=== PATIENT | female | born 1935 | race African-American/Black ===

== ENCOUNTER 2017-05-16 09:34 | Observation (INO) | payer OTHER ==
[~2017-05-16] VITALS: Ht 162.6 cm; Wt 72.4 kg
--- NOTE | 2017-05-16 09:44 | NUR ---
EKG IN PROGRESS BY EMT NAGA IN TRIAGE
--- NOTE | 2017-05-16 09:49 | NUR ---
[facility] ALERT AND ORIENTED SPEAKING IN CLEAR COMPLETE SENTENCES. EKG DONE IN TRIAGE SHOWN TO DR. CRUZ IN NO DISTRESS AT THIS TIME.
--- NOTE | 2017-05-16 11:05 | NUR ---
MEDICATED ORDERED. PLEASE SEE EMR.
--- NOTE | 2017-05-16 11:18 | NUR ---
BEDSIDE ULTRASOUND BEGUN.
[2017-05-16 11:35] LABS: BASOPHIL % 0.5 % (0-2); PLATELET COUNT 358 x10^3mcL (130-400); RED CELL DISTRIBUTION WIDTH 13.8 % (11.5-14.5)
[2017-05-16 11:50] LABS: CARBON DIOXIDE 32.1 mmol/L (21-32); CHLORIDE SERUM 101 mmol/L (98-107); GLUCOSE SERUM 98 mg/dL (74-106); POTASSIUM SERUM 3.7 mmol/L (3.5-5.1); SODIUM SERUM 143 mmol/L (136-145)
[2017-05-16 11:55] LABS: ALBUMIN 3.4 g/dL (3.4-5.0); ALKALINE PHOSPHATASE 75 U/L (46-116); ALT/SGPT 20 U/L (14-59); AST/SGOT 17 U/L (15-37); BILIRUBIN TOTAL 0.3 mg/dL (0.20-1.00); LIPASE 99 IU/L (73-393); TOTAL PROTEIN, SERUM 7.4 g/dL (6.4-8.2)
--- NOTE | 2017-05-16 12:22 | NUR ---
IV SITE PATENT. NO S/S OF INFILTRATION NOTED. PT DENIES PAIN OR DISCOMFORT TO SITE. CALL LIGHT W/IN REACH. WILL CONTINUE TO MONITOR.
--- NOTE | 2017-05-16 13:02 | NUR ---
PT RESTING ON GURNEY IN POSITION OF COMFORT. RESPS E/U. NO S/S OF DISTRESS NOTED. CALL LIGHT W/IN REACH. WILL CONTINUE TO MONITOR.
[2017-05-16] MEDS ORDERED: LISINOPRIL1 PO1 (13:06)
[2017-05-16] MEDS ORDERED: GOOD SENSE OMEP20 MG (13:06)
--- NOTE | 2017-05-16 13:18 | NUR ---
PT REPORTS SHE DOES NOT WANT TO BE ADMITTED. STS SHE HAS A SICK AT HOME W/NO ONE TO BE ABLE TO CARE FOR HIM. DR. REYNOLDS MADE AWARE.
--- NOTE | 2017-05-16 13:19 | NUR ---
DR. REYNOLDS AT BEDSIDE DISCUSSING PLAN OF CARE.
--- NOTE | 2017-05-16 13:49 | NUR ---
REPORT GIVEN TO DANIELLE RANDHAWA FOR CONTINUATION OF CARE PRIMARY RN.
[2017-05-16 14:08] VITALS: BP 166/63
--- NOTE | 2017-05-16 14:10 | NUR ---
RECEIVED PT FROM ED VIA [facility], CAME IN DUE TO ABDOMINAL PAIN. AAOX4. NO SOB NOTED. DENIES CHEST PAIN/PRESSURE, NSR ON THE MONITOR. STATED THAT SHE HAS MILD ABDOMINAL PAIN. DENIES NAUSEA/VOMITING. SIDE RAILS UPX2. CALL LIGHT ON REACH. ENDORSED
[2017-05-16 14:23] VITALS: BP 166/63
[2017-05-16 14:25] VITALS: Ht 162.6 cm; Wt 72.4 kg
--- NOTE | 2017-05-16 14:54 | NUR ---
PRIMARY NURSE SYDNEE MADE AWARE THAT PT NEEDS AN ADMIT ORDER
--- NOTE | 2017-05-16 15:00 | NUR ---
ASSUMED PT. CARE AWAKE ,ALERT AND ORIENTED. DENIES ABD. PAIN AT THIS TIME NO N/V.CONT. IV FLUIDS ORDERED. NO ACUTE DISTRESS NOTED. ABLE TO AMBULATE IN THE BATHROOM AND VOIDING WELL.CALL LIGHT W/ IN REACH.
[2017-05-16 17:32] LABS: CHOLESTEROL/HDL RATIO 2.8; MAGNESIUM 1.9 mg/dL (1.8-2.4)
[2017-05-16 17:38] VITALS: BP 142/59
[2017-05-16 17:42] LABS: FREE T4 1.09 ng/dL (0.76-1.46); FREE THYROXINE INDEX 3.6 ug/dL (1.4-4.5); T4(THYROXINE) 10.7 ug/dL (4.7-13.3)
--- NOTE | 2017-05-16 18:00 | NUR ---
DR. COURTNEY HERE SEEN THE PT. W/ NEW ORDERS MADE PT. TO KEEP NPO NOW .PT. MADE AWARE. DENIES ANY PAIN AT THIS TIME.CALLLIGHT W/ IN REACH.
[2017-05-16] MEDS ORDERED: TRAZODONE100 MG PO (18:25)
--- NOTE | 2017-05-16 19:57 | NUR ---
RECEIVED PT IN BED AAOX4 NO ACUTE DISTRESS NOTED, PT DENY ABD PAIN AT THE MOMENT BS ACTIVE X4 QUADRANT , ABD SOFT NON TENDER , LUNG SOUNDS CTA , ON TELE NUMBER 35 THAT SHOWS NSR HR 78. PIV TO RIGHT HAND INTACT INFUSING WELL . CALL LIGHT WITHIN PT'S REACH , WILL CON'T TO MONITOR AND ASSIST PT WITH CARE.
[2017-05-16 21:49] VITALS: BP 132/65
--- NOTE | 2017-05-16 22:35 | NUR ---
I HAVE REVIEWED THE DATA COLLECTION BY SERAFIN (NAME):BRAEDEN RUBI ENTERED ON (DATE/TIME):05/16/171956 I CONCUR WITH THE DATA AND ANY EXCEPTIONS OR COMMENTS ARE LISTED BELOW:
--- NOTE | 2017-05-16 23:11 | NUR ---
ASSUMED CARE . PT RESTING QUIETLY IN BED. DENIES PAIN OR ANY DISCOMFORT AT THIS TIME. SR ON THE MONITOR, DENIES CP. RESP. EVEN AND UNLABORED. ON ROOM AIR, NO DISTRESS NOTED. IVF, NS AT 100ML/HR, INTACT AND INFUSING VIA RT HAND, SITE CLEAR. ABLE TO TURN AND REPOSITION SELF IN BED. CALL LIGHT WITHIN REACH. WILL CONTINUE TO MONITOR.
[2017-05-16] MEDS ORDERED: ANASTROZOLE1 M1 PO (23:29)
--- NOTE | 2017-05-17 02:10 | NUR ---
ASLEEP AT THIS TIME, EASILY AROUSABLE.NO DISTRESS NOTED. WILL CONTINUE TO MONITOR.
[2017-05-17 06:03] VITALS: BP 118/49
--- NOTE | 2017-05-17 06:34 | NUR ---
SLEPT WELL. AFEBRILE AND VITAL SIGNS STABLE.RESP. EVEN AND UNLABORED. NO DISTRESS NOTED. DENIES ABD. PAIN, BUT HAD 2 LARGE LOOSE BMS. IVF INTACT AND INFUSING WELL, SITE CLEAR. KEPT COMFORTABLE. WILL ENDORSE TO INCOMING NURSE.
[2017-05-17 07:08] LABS: BASOPHIL % 1.3 % (0-2); PLATELET COUNT 327 x10^3mcL (130-400); RED CELL DISTRIBUTION WIDTH 13.8 % (11.5-14.5)
[2017-05-17 07:20] LABS: CALCIUM 8.6 mg/dL (8.5-10.1); CARBON DIOXIDE 30.4 mmol/L (21-32); CHLORIDE SERUM 106 mmol/L (98-107); CREATININE SERUM 1.2 mg/dL (0.6-1.0); GLUCOSE SERUM 84 mg/dL (74-106); POTASSIUM SERUM 3.6 mmol/L (3.5-5.1); SODIUM SERUM 144 mmol/L (136-145)
--- NOTE | 2017-05-17 07:50 | NUR ---
AWAKE,ALERT AND ORIENTED,DENIES ABD. PAIN AT THIS TIME. CONT.IV FLUIDS ORDERED. AMBULATED IN THE BATHROOM AND VOIDING WELL. DENIES N/V NO DIARRHEA NOTED THIS AM.ATE BREAKFAST FAIRLY.NOACUTE DISTRESS NOTED. WILL CONT. PLAN OF CARE.
--- NOTE | 2017-05-17 08:00 | NUR ---
DR. SANCHEZ WAS HERE W/ OTHER MEDICAL STAFF MADE ROUNDS AND UPDATED PT. PLAN OF CARE.
[2017-05-17 08:37] LABS: T3 TOTAL 1.4 ng/mL
[2017-05-17 09:58] LABS: UA SPECIFIC GRAVITY >=1.030 (1.005-1.035); microscopic required? YES
[2017-05-17 09:59] LABS: urine erythrocyte NEGATIVE (NEGATIVE)
[2017-05-17 10:00] VITALS: BP 136/65
[2017-05-17] MEDS ORDERED: GOOD SENSE OMEP20 MG PO (10:21)
--- NOTE | 2017-05-17 11:00 | NUR ---
DENIES ABD.PAIN NO ACUTE DISTRESS NOTED. AMBULATED IN THE BATHROOM AND VOIDING WELL.CALL LIGHT W/ IN REACH.
[2017-05-17 13:01] VITALS: BP 136/65
--- NOTE | 2017-05-17 14:13 | NUR ---
DISCHARGED INSTRUCTIONS GIVEN AND DISCUSSED TO PT. AND VERBALIZED UNDERSTANDING OF INSTRUCTIONS GIVEN ,PT. WENT HOME W/ STABLE CONDITION AMBULATORY ACCOMPANIED BY SUPERVISOR PACKING IN THE LOBY PT. DRIVE HERSELF TO GO HOME.NO ACUTE DISTRESS NOTED.
== END 2017-05-17 14:13 | disposition home or self-care (01) | DRG 446 ==
LOC: ED 09:34 → DU 13:02
PROVIDERS: Emergency Medicine; ADMIT Family Medicine
DX: K83.8 Other specified diseases of biliary tract (principal); K21.9 Gastro-esophageal reflux disease without esophagitis; Z68.27 Body mass index [BMI] 27.0-27.9, adult; Z85.3 Personal history of malignant neoplasm of breast; I16.0 Hypertensive urgency; Z90.12 Acquired absence of left breast and nipple
CPT/HCPCS: 84439; G0378; J1885; J2405; J7030; Q0092

== ENCOUNTER 2017-05-29 11:45 | Emergency (ER) | payer OTHER, MEDICAID ==
[~2017-05-29 11:45] MED LIST: ANASTROZOLE1 M1 PO; GOOD SENSE OMEP20 MG; GOOD SENSE OMEP20 MG PO; LISINOPRIL1 PO1; TRAZODONE100 MG PO
[2017-05-29 12:24] VITALS: BP 151/75
== END 2017-05-29 15:12 | disposition left against medical advice (07) ==
LOC: ED 11:45
DX: Z53.21 Procedure and treatment not carried out due to patient leaving prior to being seen by health care provider (principal)

== ENCOUNTER 2017-09-17 06:01 | Emergency (ER) | payer OTHER, MEDICAID ==
[~2017-09-17] VITALS: Ht 162.6 cm; Wt 71.7 kg
[2017-09-17 06:30] VITALS: Ht 162.6 cm; Wt 71.7 kg
[2017-09-17 07:55] VITALS: BP 120/81
== END 2017-09-17 07:55 | disposition home or self-care (01) ==
LOC: ED 06:01
DX: M62.838 Other muscle spasm (principal); G44.209 Tension-type headache, unspecified, not intractable; I10 Essential (primary) hypertension; Z90.12 Acquired absence of left breast and nipple
CPT/HCPCS: 20552; J2001

== ENCOUNTER 2017-12-22 11:19 | Emergency (ER) | payer OTHER, MEDICAID ==
[~2017-12-22] VITALS: Ht 162.6 cm; Wt 72.6 kg
[2017-12-22 11:29] VITALS: Ht 162.6 cm; Wt 72.6 kg
[2017-12-22 12:13] LABS: CARBON DIOXIDE 32.2 mmol/L (21-32); CHLORIDE SERUM 104 mmol/L (98-107); CREATININE SERUM 1.1 mg/dL (0.6-1.0); GLUCOSE SERUM 90 mg/dL (74-106); SODIUM SERUM 139 mmol/L (136-145)
[2017-12-22 12:17] LABS: ALBUMIN 3.4 g/dL (3.4-5.0); ALKALINE PHOSPHATASE 62 U/L (46-116); ALT/SGPT 23 U/L (14-59); AST/SGOT 15 U/L (15-37); BILIRUBIN TOTAL 0.3 mg/dL (0.20-1.00); TOTAL PROTEIN, SERUM 6.8 g/dL (6.4-8.2)
[2017-12-22 12:29] LABS: BASOPHIL % 0.2 % (0-2); PLATELET COUNT 317 x10^3mcL (130-400); RED CELL DISTRIBUTION WIDTH 13.7 % (11.5-14.5)
[2017-12-22 13:49] VITALS: BP 174/82
== END 2017-12-22 13:49 | disposition home or self-care (01) ==
LOC: ED 11:19
PROVIDERS: Emergency Medicine
DX: I10 Essential (primary) hypertension (principal)
CPT/HCPCS: 36415

== ENCOUNTER 2018-02-08 12:46 | Emergency (ER) | payer OTHER, MEDICAID ==
[~2018-02-08] VITALS: Ht 162.6 cm; Wt 70.8 kg
[2018-02-08 12:49] VITALS: Ht 162.6 cm; Wt 70.8 kg
[2018-02-08 15:52] VITALS: BP 135/65
== END 2018-02-08 15:52 | disposition home or self-care (01) ==
LOC: ED 12:46
DX: M48.54XA Collapsed vertebra, not elsewhere classified, thoracic region, initial encounter for fracture (principal); M51.36 Other intervertebral disc degeneration, lumbar region; K59.00 Constipation, unspecified; I10 Essential (primary) hypertension
CPT/HCPCS: J1885

== ENCOUNTER 2018-07-10 09:02 | Inpatient (IN) | payer OTHER ==
[~2018-07-10] VITALS: Ht 162.6 cm; Wt 665.4 kg
[2018-07-10 09:03] VITALS: Ht 162.6 cm; Wt 665.4 kg
[2018-07-10 09:48] LABS: CALCIUM 8.6 mg/dL (8.5-10.1); CARBON DIOXIDE 28.4 mmol/L (21-32); CHLORIDE SERUM 102 mmol/L (98-107); GLUCOSE SERUM 148 mg/dL (74-106); POTASSIUM SERUM 4.3 mmol/L (3.5-5.1); SODIUM SERUM 133 mmol/L (136-145)
[2018-07-10 09:53] LABS: ALBUMIN 3.5 g/dL (3.4-5.0); ALKALINE PHOSPHATASE 78 U/L (46-116); ALT/SGPT 19 U/L (14-59); AST/SGOT 10 U/L (15-37); BILIRUBIN TOTAL 0.28 mg/dL (0.20-1.00); TOTAL PROTEIN, SERUM 7.6 g/dL (6.4-8.2)
[2018-07-10 10:15] LABS: BASOPHIL % 0.2 % (0-2); PLATELET COUNT 343 x10^3mcL (130-400); RED CELL DISTRIBUTION WIDTH 14.3 % (11.5-14.5)
[2018-07-10] MEDS ORDERED: NOR10 PO (11:10)
[2018-07-10] MEDS ORDERED: MELOXICAM15 M1 PO (11:10)
[2018-07-10 12:08] VITALS: BP 151/62
[2018-07-10 15:48] VITALS: BP 151/62
== END 2018-07-10 18:50 | disposition home or self-care (01) | DRG 313 ==
LOC: ED 09:02 → DU 11:00
PROVIDERS: Emergency Medicine
DX: R07.89 Other chest pain (principal); E87.1 Hypo-osmolality and hyponatremia; I10 Essential (primary) hypertension; R54 Age-related physical debility; G89.29 Other chronic pain; M16.11 Unilateral primary osteoarthritis, right hip; Z68.23 Body mass index [BMI] 23.0-23.9, adult; Z85.3 Personal history of malignant neoplasm of breast
CPT/HCPCS: 83880; J1885; Q0092

== ENCOUNTER 2018-11-07 07:09 | Emergency (ER) | payer OTHER ==
[~2018-11-07] VITALS: Ht 162.6 cm; Wt 70.4 kg
[~2018-11-07 07:09] MED LIST changes: +MELOXICAM15 M1 PO; +NOR10 PO
[2018-11-07 07:15] VITALS: BP 191/73
== END 2018-11-07 08:00 | disposition home or self-care (01) ==
LOC: ED 07:09
DX: M26.602 Left temporomandibular joint disorder, unspecified (principal); I10 Essential (primary) hypertension; Z90.12 Acquired absence of left breast and nipple; Z85.3 Personal history of malignant neoplasm of breast

== ENCOUNTER 2018-11-15 17:34 | Emergency (ER) | payer OTHER | END 2018-11-15 23:33 | disposition home or self-care (01) | LOC: ED 17:34 ==

== ENCOUNTER 2018-11-18 09:34 | Emergency (ER) | payer OTHER ==
[~2018-11-18] VITALS: Ht 162.6 cm; Wt 69.4 kg
[2018-11-18 09:34] VITALS: Ht 162.6 cm; Wt 69.4 kg
[2018-11-18 11:49] VITALS: BP 168/77
== END 2018-11-18 11:49 | disposition home or self-care (01) ==
LOC: ED 09:34
DX: I10 Essential (primary) hypertension (principal); R51 Headache; Z90.710 Acquired absence of both cervix and uterus

== ENCOUNTER 2018-11-27 12:56 | Emergency (ER) | payer OTHER, MEDICAID ==
[~2018-11-27] VITALS: Ht 162.6 cm; Wt 60.3 kg
[2018-11-27 12:57] VITALS: Ht 162.6 cm; Wt 60.3 kg
[2018-11-27 13:52] LABS: BASOPHIL % 1.5 % (0-2); PLATELET COUNT 319 x10^3mcL (130-400)
[2018-11-27 14:25] LABS: CALCIUM 8.6 mg/dL (8.5-10.1); CARBON DIOXIDE 30.4 mmol/L (21-32); CHLORIDE SERUM 103 mmol/L (98-107); CREATININE SERUM 1.1 mg/dL (0.6-1.0); GLUCOSE SERUM 99 mg/dL (74-106); POTASSIUM SERUM 3.9 mmol/L (3.5-5.1); SODIUM SERUM 139 mmol/L (136-145)
[2018-11-27 14:29] LABS: ALKALINE PHOSPHATASE 66 U/L (46-116); ALT/SGPT 20 U/L (14-59); AST/SGOT 13 U/L (15-37); BILIRUBIN TOTAL 0.2 mg/dL (0.20-1.00); TOTAL PROTEIN, SERUM 6.7 g/dL (6.4-8.2)
[2018-11-27 14:30] LABS: ALBUMIN 3.2 g/dL (3.4-5.0)
[2018-11-27 18:06] VITALS: BP 149/65
== END 2018-11-27 18:06 | disposition home or self-care (01) ==
LOC: ED 12:56
PROVIDERS: Emergency Medicine
DX: R07.89 Other chest pain (principal); I10 Essential (primary) hypertension; Z85.3 Personal history of malignant neoplasm of breast; Z90.710 Acquired absence of both cervix and uterus
CPT/HCPCS: 83880; 85378; J1885; Q0092

== ENCOUNTER 2020-01-06 06:50 | Emergency (ER) | payer OTHER, MEDICAID ==
[~2020-01-06] VITALS: Ht 162.6 cm; Wt 69.9 kg
[2020-01-06 06:51] VITALS: Ht 162.6 cm; Wt 69.9 kg
[2020-01-06 08:00] VITALS: BP 126/55
== END 2020-01-06 08:00 | disposition home or self-care (01) ==
LOC: ED 06:50
DX: M20.11 Hallux valgus (acquired), right foot (principal); I10 Essential (primary) hypertension; Z90.710 Acquired absence of both cervix and uterus; Z85.3 Personal history of malignant neoplasm of breast
CPT/HCPCS: Q0092

== ENCOUNTER 2020-01-10 13:32 | Emergency (ER) | payer OTHER, MEDICAID ==
[~2020-01-10] VITALS: Ht 162.6 cm; Wt 70.3 kg
[2020-01-10 13:37] VITALS: Ht 162.6 cm; Wt 70.3 kg
[2020-01-10 14:17] VITALS: BP 135/59
== END 2020-01-10 14:17 | disposition home or self-care (01) ==
LOC: ED 13:32
DX: R60.0 Localized edema (principal); I10 Essential (primary) hypertension; M10.9 Gout, unspecified; Z90.710 Acquired absence of both cervix and uterus; Z85.3 Personal history of malignant neoplasm of breast

== ENCOUNTER 2020-02-01 05:28 | Emergency (ER) | payer OTHER, MEDICAID ==
[~2020-02-01] VITALS: Ht 162.6 cm; Wt 71.7 kg
[2020-02-01 05:44] VITALS: Ht 162.6 cm; Wt 71.7 kg
[2020-02-01 06:43] VITALS: BP 132/68
== END 2020-02-01 06:43 | disposition home or self-care (01) ==
LOC: ED 05:28
DX: J01.90 Acute sinusitis, unspecified (principal); M10.9 Gout, unspecified; I10 Essential (primary) hypertension; Z90.710 Acquired absence of both cervix and uterus; Z85.3 Personal history of malignant neoplasm of breast